=== PATIENT | female | born 1945 ===

== ENCOUNTER → 2017-08-18 | Outpatient (CLI) | payer MEDICARE, OTHER | LOC: PLD 11:33 → LAB SHORT 11:33 | DX: L82.1 Other seborrheic keratosis (principal) | CPT/HCPCS: 88305 ==

== ENCOUNTER → 2017-09-22 | Outpatient (CLI) | payer MEDICARE, OTHER | LOC: PLD 14:05 → LAB SHORT 14:05 | DX: L72.9 Follicular cyst of the skin and subcutaneous tissue, unspecified (principal) | CPT/HCPCS: 88304 ==

== ENCOUNTER → 2019-03-28 | Outpatient (CLI) | payer MEDICARE, OTHER | END | disposition home or self-care (01) | LOC: PLD 14:37 → LAB SHORT 14:37 | DX: D22.62 Melanocytic nevi of left upper limb, including shoulder (principal) | CPT/HCPCS: 88305 ==

== ENCOUNTER → 2020-07-29 | Outpatient (CLI) | payer MEDICARE, OTHER | LOC: LAB 12:58 → LAB SHORT 12:58 | DX: D48.5 Neoplasm of uncertain behavior of skin (principal) | CPT/HCPCS: 88305 ==

== ENCOUNTER → 2022-02-03 | Outpatient (CLI) | payer MEDICARE, OTHER | END | disposition home or self-care (01) | LOC: LAB 11:11 → LAB SHORT 11:11 | DX: L57.0 Actinic keratosis (principal) | CPT/HCPCS: 88305 ==

== ENCOUNTER → 2022-12-24 | Outpatient (CLI) | payer MEDICARE, OTHER | END | disposition home or self-care (01) | LOC: LAB SHORT 14:48 → PLD 14:48 | DX: D48.5 Neoplasm of uncertain behavior of skin (principal) | CPT/HCPCS: 88305 ==

== ENCOUNTER 2024-08-02 06:14 | Day surgery (SDC) | payer MEDICARE, OTHER ==
[~2024-08-02] VITALS: Ht 160 cm; Wt 61.3 kg
[~2024-08-02 06:14] MED LIST: Amlodipine Bes2.5 MG PO; B-121000 MC3 PO; Balanced Salt Epinephrine Irrigation Solution 500 mL IR SCH; C COMPLEX1000 M1 PO; Diazepam 2 MG Tab PO PRN; Diazepam 5 MG Tab PO PRN; Diazepam 5 MG Tab PO SCH; Lidocaine HCl/Pf 1% 5 ML VIAL XX SCH; Moxifloxacin HCL 0.5 MG/0.1 ML 0.4MLSYR LEFTEYE SCH; Ondansetron 4 MG SoluTab MM PRN; PHENYLEPHRINE\\TROPICAMIDE\\TETRACAINE OPHTHALMIC DILATING SOLN LEFTEYE PRN; Povidone-Iodine 450 DROP/30 ML Solution LEFTEYE SCH; Povidone-Iodine 450 DROP/30 ML Solution ONE; SYNTHROID100 MC1 PO; Tetracaine HCl/Pf 0.5% Opth Soln 4 ml ONE; Triamcinolone Inj Susp 40 MG / ML 1ML Vial INJ SCH; diazePAM 2 MG,diazePAM 5 MG PO SCH
[2024-08-02] MEDS ORDERED: Diazepam 5 MG Tab ONE (06:20)
--- NOTE | 2024-08-02 06:34 | NUR ---
08/02/24 0634 Leia Thorne 0672: PER PATIENT SHE HAD ABSOLUTELY NO SEDATION, NO IV SEDATION, NO PILL LAST CATARACT PROCEDURE AND WOULD LIKE THE SAME TREATMENT TODAY. SHE WOULD LIKE TO REFUSE SEDATION. ANXIETY LEVEL 0/10.
[2024-08-02] MEDS ORDERED: Triamcinolone Inj Susp 40 MG / ML 1ML Vial ONE (06:41)
[2024-08-02] MEDS ORDERED: Lidocaine HCl/Pf 1% 5 ML VIAL ONE (06:41)
[2024-08-02 07:50] VITALS: BP 147/91
== END 2024-08-02 08:09 | disposition home or self-care (01) ==
LOC: ORSCSDS 06:14
PROVIDERS: Ophthalmology
PROC: 08RK3JZ Replacement of Left Lens with Synthetic Substitute, Percutaneous Approach (ICD-10-PCS; principal; 2024-08-02 07:30)
DX: H25.812 Combined forms of age-related cataract, left eye (principal); Z96.1 Presence of intraocular lens; I10 Essential (primary) hypertension; F17.210 Nicotine dependence, cigarettes, uncomplicated; Z79.899 Other long term (current) drug therapy
CPT/HCPCS: A9270; J2003; J3301; V2632